=== PATIENT | female | born 2000 | race Hispanic/Latino ===

== ENCOUNTER 2023-04-06 16:52 | Emergency (ER) | payer OTHER ==
[~2023-04-06] VITALS: Ht 165.1 cm; Wt 76.3 kg
[~2023-04-06 16:52] MED LIST: AMOX875T2 PO; DOXY-443 PO; METH-1164 PO
[2023-04-06] MEDS ORDERED: NS 1,000 ML IV ONE (18:45)
[2023-04-06] MEDS ORDERED: KETOROLAC 30 MG/ML 1ML VIAL IV ONE (18:45)
[2023-04-06 19:09] LABS: BASO # 0.1 10^3/uL (0.0-0.2); BASO % 0.5 % (0.0-1.0); EOS # 0.2 10^3/uL (0.0-0.5); EOS % 1.9 % (0.0-3.0); HEMATOCRIT 42.1 % (36.0-47.0); HEMOGLOBIN 14.2 g/dl (12.0-15.5); LYMPH # 3.6 10^3/uL (1.5-5.0); LYMPH % 28.2 % (24.0-44.0); MEAN CORPUSCULAR HEMOGLOBIN 29.9 pg (27.0-33.0); MEAN CORPUSCULAR HGB CONC 33.7 g/dl (32.0-36.5); MEAN CORPUSCULAR VOLUME 88.6 fl (80.0-96.0); MONO # 0.9 10^3/uL (0.0-0.8); MONO % 7.1 % (2.0-8.0); NEUTROPHILS # 7.8 10^3/uL (1.5-8.5); NEUTROPHILS % 61.7 % (36.0-66.0); PLATELET COUNT, AUTOMATED 299 10^3/uL (150-450); RED BLOOD COUNT 4.75 10^6/uL (4.00-5.40); WHITE BLOOD COUNT 12.6 10^3/uL (4.0-10.0)
[2023-04-06 19:29] LABS: LIPASE 43 U/L (12-53)
[2023-04-06 19:31] LABS: ALBUMIN 4.3 G/DL (3.2-5.2); ALKALINE PHOSPHATASE 128 U/L (46-116); ALT/SGPT 44 U/L (7.0-40); AST/SGOT 22 U/L (<34); BILIRUBIN,DIRECT < 0.1 MG/DL (<0.4); BILIRUBIN,TOTAL 0.3 MG/DL (0.3-1.2); BLOOD UREA NITROGEN 11 MG/DL (9-23); CALCIUM LEVEL 9.4 MG/DL (8.5-10.1); CARBON DIOXIDE LEVEL 26 MMOL/L (20-31); CHLORIDE LEVEL 106 MMOL/L (98-107); CREATININE FOR GFR 0.64 MG/DL (0.55-1.30); GLOMERULAR FILTRATION RATE > 60.0 (>60); GLUCOSE, FASTING 77 MG/DL (60-100); POTASSIUM SERUM 4.1 MMOL/L (3.5-5.1); SODIUM LEVEL 141 MMOL/L (136-145); TOTAL PROTEIN 7.9 G/DL (5.7-8.2)
[2023-04-06] MEDS ORDERED: ISOVUE-370 76% 100ML VIAL As Ordered ONE (19:54)
[2023-04-06 20:56] LABS: CHLAMYDIA DNA AMPLIFICATION NEGATIVE (NEGATIVE); GC DNA AMPLIFICATION NEGATIVE (NEGATIVE)
[2023-04-06] MEDS ORDERED: CIPR-249 PO (21:33)
[2023-04-06 21:43] VITALS: BP 129/60; TEMP 97.2; O2SAT 100
== END 2023-04-06 21:44 | disposition home or self-care (01) ==
LOC: M ED 16:52
DX: N39.0 Urinary tract infection, site not specified (principal); F17.290 Nicotine dependence, other tobacco product, uncomplicated
CPT/HCPCS: 74177; 80048; 80076; 81001; 83690; 85025; 87086; 87661; 87810; 87850; 96361; 96374; 99284; J1885; Q9967

== ENCOUNTER 2023-06-28 19:35 | Emergency (ER) | payer OTHER ==
[~2023-06-28] VITALS: Ht 165.1 cm; Wt 78.8 kg
[~2023-06-28 19:35] MED LIST changes: +CIPR-249 PO
[2023-06-29 01:50] LABS: BASO % 0.4 % (0.0-1.0); EOS # 0.4 10^3/uL (0.0-0.5); EOS % 3.7 % (0.0-3.0); HEMATOCRIT 37.4 % (36.0-47.0); HEMOGLOBIN 12.8 g/dl (12.0-15.5); LYMPH # 4.4 10^3/uL (1.5-5.0); MEAN CORPUSCULAR HEMOGLOBIN 30.3 pg (27.0-33.0); MEAN CORPUSCULAR HGB CONC 34.2 g/dl (32.0-36.5); MEAN CORPUSCULAR VOLUME 88.4 fl (80.0-96.0); MONO # 0.7 10^3/uL (0.0-0.8); NEUTROPHILS # 4.6 10^3/uL (1.5-8.5); NEUTROPHILS % 45.6 % (36.0-66.0); PLATELET COUNT, AUTOMATED 269 10^3/uL (150-450); RED BLOOD COUNT 4.23 10^6/uL (4.00-5.40); WHITE BLOOD COUNT 10.2 10^3/uL (4.0-10.0)
[2023-06-29] MEDS ORDERED: metroNIDAZOLE (FLAGYL) 500MG TABLET PO ONE (01:50)
[2023-06-29] MEDS ORDERED: METR-265 PO (01:51)
[2023-06-29 01:53] VITALS: BP 143/87; TEMP 96.8; O2SAT 100
== END 2023-06-29 02:01 | disposition home or self-care (01) ==
LOC: M ED 19:35
DX: N76.0 Acute vaginitis (principal)

== ENCOUNTER 2023-08-04 06:52 | Emergency (ER) | payer OTHER ==
[~2023-08-04] VITALS: Ht 165.1 cm; Wt 79.1 kg
[~2023-08-04 06:52] MED LIST changes: +METR-265 PO
[2023-08-04] MEDS ORDERED: ACET-683 PO (09:25)
[2023-08-04] MEDS ORDERED: HOME MED LIST COMPLETE! XX SCH (09:25)
[2023-08-04] MEDS ORDERED: AMOX875T2 PO (10:41)
[2023-08-04] MEDS ORDERED: BACT800T5 PO (10:41)
[2023-08-04 11:25] VITALS: BP 138/72; TEMP 97.2; O2SAT 100
== END 2023-08-04 11:26 | disposition home or self-care (01) ==
LOC: M ED 06:52
DX: N76.89 Other specified inflammation of vagina and vulva (principal); F17.210 Nicotine dependence, cigarettes, uncomplicated; Z79.1 Long term (current) use of non-steroidal anti-inflammatories (NSAID); Z79.2 Long term (current) use of antibiotics; Z79.899 Other long term (current) drug therapy

== ENCOUNTER 2024-09-02 15:57 | Emergency (ER) | payer OTHER ==
[~2024-09-02] VITALS: Ht 167.6 cm; Wt 75.4 kg
[~2024-09-02 15:57] MED LIST changes: +ACET-683 PO; +BACT800T5 PO; +DOXY-441 PO; -DOXY-443 PO
[2024-09-02] MEDS ORDERED: ACET500P3 PO (16:07)
[2024-09-02 16:34] LABS: KETONE, URINE AUTO RFX NEGATIVE (NEGATIVE); MUCUS, URINE RFX SMALL (NEGATIVE); NITRITE, URINE AUTO RFX NEGATIVE (NEGATIVE); RBC, URINE AUTO RFX 8 /HPF (0-3); SQUAM EPITHELIAL CELL UR AURFX 1 /HPF (0-6); WBC, URINE AUTO RFX 8 /HPF (0-3)
[2024-09-02 16:35] LABS: LEUKOCYTE ESTERASE UR AUTO RFX TRACE (NEGATIVE)
[2024-09-02 17:43] LABS: Trichomonas vaginalis (AMP) NOT DETECTED (NEGATIVE)
[2024-09-02 18:07] LABS: GC DNA AMPLIFICATION NEGATIVE (NEGATIVE)
[2024-09-02] MEDS: DOXYCYCLINE HYCLATE 100MG TABLET PO ONE (18:41)
[2024-09-02] MEDS: metroNIDAZOLE (FLAGYL) 500MG TABLET PO ONE (18:41)
[2024-09-02 19:30] VITALS: BP 142/76; TEMP 97.9; O2SAT 100
[2024-09-02] MEDS ORDERED: METR-265 PO (21:24)
== END 2024-09-02 21:33 | disposition home or self-care (01) ==
LOC: M ED 15:57
DX: A74.9 Chlamydial infection, unspecified (principal); N76.0 Acute vaginitis; Z79.1 Long term (current) use of non-steroidal anti-inflammatories (NSAID); Z79.2 Long term (current) use of antibiotics

== ENCOUNTER 2025-05-02 16:44 | Emergency (ER) | payer OTHER ==
[~2025-05-02] VITALS: Ht 167.6 cm; Wt 72.7 kg
[~2025-05-02 16:44] MED LIST changes: +ACET500P3 PO
[2025-05-02 18:49] VITALS: BP 125/78; TEMP 97; O2SAT 100
== END 2025-05-02 18:51 | disposition home or self-care (01) ==
LOC: M ED 16:44
DX: F32.A Depression, unspecified (principal)